=== PATIENT | male | born 1960 | race Caucasian/White ===

== ENCOUNTER 2021-08-14 13:06 | Emergency (ER) | payer MEDICARE ==
[2021-08-14] MEDS ORDERED: PROAIR HFA8.5 GM INH (17:11)
[2021-08-14] MEDS ORDERED: MUCINEX1200 MG PO (17:11)
== END 2021-08-14 19:40 | disposition home or self-care (01) ==
LOC: ER1 13:06
DX: U07.1 COVID-19 (principal); J12.82 Pneumonia due to coronavirus disease 2019; Z23 Encounter for immunization; E11.40 Type 2 diabetes mellitus with diabetic neuropathy, unspecified; Z87.442 Personal history of urinary calculi; Z88.8 Allergy status to other drugs, medicaments and biological substances
CPT/HCPCS: 71045; 87081; 87880; 99283; M0243; U0002